=== PATIENT | female | born 1975 | race Caucasian/White ===

== ENCOUNTER → 2016-05-20 | Outpatient (CLI) | payer OTHER ==
[~2016-05-20] MED LIST: ATOR10TA88 PO; CLON0.5T3 PO; EFFSR75 PO; GLC/500 PO; IBUP-103 PO; LISD40CA PO; ONDA4TAB10 SL; OXYC-57 PO; OXYC1TAB3 PO; ROSU20TA PO; SERT50TA PO; TAMS0.4C38 PO; VENL150C PO
[2016-05-20 17:48] LABS: URINE APPEARANCE TURBID (CLEAR); URINE BILIRUBIN NEG (NEG); URINE COLOR YELLOW; URINE NITRITE NEG (NEG); URINE SPECIFIC GRAVITY 1.021 (1.000-1.030); UROBILINOGEN NEG (NEG)
[2016-05-20 18:13] LABS: MANUAL MICROSCOPIC REQUIRED? YES; REVIEW REQ? NO
[2016-05-20 19:07] LABS: URINE BACTERIA NEG (NEG)
== END | disposition home or self-care (01) ==
LOC: C.LABSPEC 17:24
PROVIDERS: ATTEND Family Medicine
DX: R10.2 Pelvic and perineal pain (principal)

== ENCOUNTER 2016-07-01 02:37 | Emergency (ER) | payer OTHER ==
[~2016-07-01] VITALS: Ht 149.9 cm; Wt 60.6 kg
[~2016-07-01 02:37] MED LIST changes: -ATOR10TA88 PO; -LISD40CA PO; -ONDA4TAB10 SL; -OXYC-57 PO; -OXYC1TAB3 PO; -SERT50TA PO; -TAMS0.4C38 PO
[2016-07-01 02:41] VITALS: TEMP 36.8; Ht 149.9 cm; Wt 60.6 kg
[2016-07-01] MEDS ORDERED: SODIUM CHLORIDE 0.9% 1000ML 1,000 ML IV STA ×2 (03:03→06:16)
--- NOTE | 2016-07-01 03:13 | EMERGENCY ROOM VISIT NOTE ---
History Report prepared by Jamir: Eliseo Banks Under the Supervision of: Dr. Stoney Heard M.D. First contact with patient: 02:47 Chief Complaint: PELVIC PAIN Stated Complaint: ABDOMINAL PAIN History of Present Illness The patient is a 40 year old female who presents to the Emergency Room with complaints of severe right sided pelvic pain that the patient has been experiencing intermittently since March of last year, three months prior to arrival. The patient states that her current pain is localized in the right pelvic area and radiates into her right back/flank. She describes it as a cramping/pressure pain. She first experienced the pain in March, and then again significantly at the end of April. She visited with Dr. Frost on May 20 and had a negative urine test. On Friday of this week, 5 days prior to arrival she noticed a brown discoloration in her urine. Her pelvic pain has been worsening since her onset on Friday. She denies any recent traumas, vaginal discharge, or pain with urination. She denies any abdominal surgeries aside from 2 sections. 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 A total of 10 systems reviewed and were otherwise negative. Past Medical & Surgical Medical Problems: (1) Hyperlipidemia Surgical Problems: (1) (2) D&C Family History Diabetes GRANDMOTHER Heart disease Hypertension Lung cancer GRANDFATHER Lung disease Social History Smoking Status: Never Smoker Alcohol Use: occasionally Marital Status: Housing Status: lives with significant other Occupation Status: employed Current/Historical Medications Scheduled Atorvastatin (Lipitor), 10 MG PO DAILY Clonazepam (Klonopin), 0.25 MG PO HS Lisdexamfetamine Dimesylate (Vyvanse), 40 MG PO DAILY Metformin Hcl (Glucophage), 500 MG PO DAILY Sertraline (Zoloft), 75 MG PO DAILY Tamsulosin Hcl (Flomax), 0.4 MG PO DAILY Scheduled PRN Ondasetron Odt (Zofran Odt), 1-2 TAB SL Q6H PRN for Nausea Oxycodone Ir (Roxicodone Ir), 1-3 TAB PO Q4H PRN for Pain Allergies Coded Allergies: Penicillins (Verified Allergy, Intermediate, HIVES, 07/01/16) Erythromycin (Verified Adverse Reaction, Intermediate, SEVERE GI UPSET, 07/01/16) Physical Exam Vital Signs Date Time Temp Pulse Resp B/P Pulse Ox O2 Delivery O2 Flow Rate FiO2 07/01/16 07:13 89 18 129/73 98 Room Air 07/01/16 06:17 99 18 128/74 97 Room Air 07/01/16 04:37 78 18 119/67 98 Room Air 07/01/16 02:41 36.8 105 18 143/80 98 Room Air Physical Exam GENERAL: Patient is uncomfortable appearing and in moderate distress. Constantly moving, unable to get comfortable. HEENT: No acute trauma, normocephalic atraumatic, mucous membranes moist, no nasal congestion, no scleral icterus. NECK: No stridor, no adenopathy, no meningismus, trachea is midline. LUNGS: No dyspnea. Clear to auscultation and equal bilaterally. No wheeze, no rhonchi. HEART: Regular rate and rhythm. No murmurs, rubs, gallops appreciated. ABDOMEN: Soft, nontender, bowel sounds positive, no masses appreciated, no peritonitis. BACK: No midline tenderness, no CVA tenderness EXTREMITIES: Normal motion all extremities, no cyanosis, no edema. NEUROLOGIC: Alert and oriented, no acute motor or sensory deficits, no focal weakness, cranial nerves grossly intact. SKIN: No rash, no jaundice, no diaphoresis. Medical Decision & Procedures ER Provider Diagnostic Interpretation: X ray results and stated below per my interpretation and radiologist interpretation. Other radiology results and stated below per my review and radiologist interpretation: CT ABDOMEN & PELVIS: Visualized lower thorax is unremarkable. The liver, gallbladder, spleen, pancreas, and adrenal glands are unremarkable. Duplicated right collecting system with a 4 mm calculus seen just distal to where the ureters fuser (2-115) at the level of the sacral ala. This causes mild hydro-ureteronephrosis. There are additional nonobstructing calculi within the left kidney. The appendix is within normal limits. Ther bowels unremarkable. The uterus and adnexa are unremarkable. No free fluid. No free air. No acute osseous abnormality. Radiologist: Boo Pena MD Study ready at 0336 and initial results transmitted at 0351 KUB CLINICAL HISTORY: Right ureteral calculus COMPARISON STUDY: CT scan dated 07/01/2016 FINDINGS: There is no pathologic bowel dilatation. The mid right ureteral calculus visualized on the CT scan dated 07/01/2016, is difficult to visualize on conventional radiographic imaging. There is an equivocal density projected over the right hemisacrum which potentially could represent the previously described calculus. IMPRESSION: The patient's mid right ureteral calculus is difficult to visualize on conventional radiographic imaging Electronically signed by: Román Dumont M.D. 07/01/2016 6:45 AM Dictated Date/Time: 07/01/2016 6:42 AM Laboratory Results 07/01/16 02:54 Red Blood Count 4.76, Mean Corpuscular Volume 84.7, Mean Corpuscular Hemoglobin 29.2, Mean Corpuscular Hemoglobin Concent 34.5, Mean Platelet Volume 10.2, Neutrophils (%) (Auto) 82.3, Lymphocytes (%) (Auto) 11.7, Monocytes (%) (Auto) 5.4, Eosinophils (%) (Auto) 0.2, Basophils (%) (Auto) 0.2, Neutrophils # (Auto) 10.99, Lymphocytes # (Auto) 1.56, Monocytes # (Auto) 0.72, Eosinophils # (Auto) 0.02, Basophils # (Auto) 0.02 07/01/16 02:54 Test 07/01/16 02:54 07/01/16 03:03 07/01/16 03:20 White Blood Count 13.33 K/uL (4.8-10.8) Red Blood Count 4.76 M/uL (4.2-5.4) Hemoglobin 13.9 g/dL (12.0-16.0) Hematocrit 40.3 % (37-47) Mean Corpuscular Volume 84.7 fL (80-100) Mean Corpuscular Hemoglobin 29.2 pg (25-34) Mean Corpuscular Hemoglobin Concent 34.5 g/dl (32-36) Platelet Count 314 K/uL (130-400) Mean Platelet Volume 10.2 fL (7.4-10.4) Neutrophils (%) (Auto) 82.3 % Lymphocytes (%) (Auto) 11.7 % Monocytes (%) (Auto) 5.4 % Eosinophils (%) (Auto) 0.2 % Basophils (%) (Auto) 0.2 % Neutrophils # (Auto) 10.99 K/uL (1.4-6.5) Lymphocytes # (Auto) 1.56 K/uL (1.2-3.4) Monocytes # (Auto) 0.72 K/uL (0.11-0.59) Eosinophils # (Auto) 0.02 K/uL (0-0.5) Basophils # (Auto) 0.02 K/uL (0-0.2) RDW Standard Deviation 39.0 fL (36.4-46.3) RDW Coefficient of Variation 12.7 % (11.5-14.5) Immature Granulocyte % (Auto) 0.2 % Immature Granulocyte # (Auto) 0.02 K/uL (0.00-0.02) Anion Gap 9.0 mmol/L (3-11) Est Creatinine Clear Calc Drug Dose 70.7 ml/min Estimated GFR () 101.5 Estimated GFR (Non- 87.6 BUN/Creatinine Ratio 25.0 (10-20) Calcium Level 9.0 mg/dl (8.5-10.1) Total Bilirubin 0.2 mg/dl (0.2-1) Direct Bilirubin < 0.1 mg/dl (0-0.2) Aspartate Amino Transf (AST/SGOT) 8 U/L (15-37) Alanine Aminotransferase (ALT/SGPT) 21 U/L (12-78) Alkaline Phosphatase 86 U/L (45-117) Total Protein 7.9 gm/dl (6.4-8.2) Albumin 4.0 gm/dl (3.4-5.0) Lipase 214 U/L (73-393) Urine Test NEG (NEG) Urine Color RED Urine Appearance SL CLOUDY (CLEAR) Urine pH 5.5 (4.5-7.5) Urine Specific [place] >= 1.030 (1.000-1.030) Urine Protein 2+ (NEG) Urine Glucose (UA) NEG (NEG) Urine Ketones NEG (NEG) Urine Occult Blood 3+ (NEG) Urine Nitrite NEG (NEG) Urine Bilirubin NEG (NEG) Urine Urobilinogen NEG (NEG) Urine Leukocyte Esterase NEG (NEG) Urine RBC >30 /hpf (0-4) Urine WBC 1-5 /hpf (0-5) Urine Epithelial Cells 5-10 /lpf (0-5) Urine Bacteria NEG (NEG) Laboratory results as reviewed by me. Medications Administered Medications (Trade) Dose Ordered Sig/Roxie Route Start Time Stop Time Status Last Admin Dose Admin Sodium Chloride (Nss 1000ml) 1,000 ml @ 999 mls/hr Q1H1M STAT IV 07/01/16 03:03 07/01/16 04:03 DC 07/01/16 03:19 999 MLS/HR Hydromorphone HCl (Dilaudid Inj) 0.5 mg NOW STAT IV 07/01/16 03:51 07/01/16 03:52 DC 07/01/16 03:59 0.5 MG Ondansetron HCl (Zofran Inj) 4 mg NOW STAT IV 07/01/16 03:51 07/01/16 03:52 DC 07/01/16 03:58 4 MG Tamsulosin HCl (Flomax Cap) 0.4 mg NOW ONCE PO 07/01/16 04:00 07/01/16 04:01 DC 07/01/16 04:03 0.4 MG Hydromorphone HCl 0.5 mg 0.5 mg NOW STAT IV 07/01/16 06:16 07/01/16 06:17 DC 07/01/16 06:26 0.5 MG Sodium Chloride (Nss 1000ml) 1,000 ml @ 999 mls/hr Q1H1M STAT IV 07/01/16 06:16 07/01/16 07:16 DC 07/01/16 06:27 999 MLS/HR Ondansetron HCl (ZOFRAN ODT 4MG Home Pack) 1 homepack UD ONCE PO 07/01/16 07:30 07/01/16 07:31 DC 07/01/16 07:36 1 HOMEPACK Oxycodone HCl (Roxicodone Immediate Rel 5MG Home Pack) 1 homepack UD ONCE PO 07/01/16 07:30 07/01/16 07:31 DC 07/01/16 07:36 1 HOMEPACK ED Course 0257: The patient was evaluated in room A2. A complete history and physical exam was performed. 0303: Ordered Sodium Chloride 1000 mL @ 999 mL/hr IV. 0349: I checked on the patient at this time, she is experiencing increased pain. She is now agreeable to IV pain medications. 0351: Ordered Zofran 4 mg IV, Dilaudid 0.5 mg IV 0400: Ordered Tamsulosin HCl 0.4 mg PO. 0428: I spoke with the patient at this time, she is declining more pain medication. 0521: I checked on the patient at this time, she states she is feeling better. 0616: I reevaluated the patient at this time, she states that her pain is returning. 0616: Ordered Sodium Chloride 1000 mL @ 999 mL/hr IV, Dilaudid 0.5 IV 0623: I discussed the case with Dr. Watts at this time. He suggests that I get a KUB, and if pain is controlled I can discharge with a planned follow-up visit in the clinic. He will alert the clinic that she needs an appointment. 0634: I met with the patient at this time she agrees to the KUB X-ray, she is getting pain medications now. Medical Decision Differential: Renal Colic, Pyelonephritis, Hydronephrosis, Appendicitis, Diverticulitis, Retroperitoneal Bleed/Infection, Aortic Pathology, MSK, Neurologic Pathology, amongst other pathologies entertained. Very pleasant 40 yr old female with on and off bilateral flank pain but acute worsening right flank pain with blood in urine. Initially declining pain medications though eventually agreeing to them. CT with right sided partial double ureter and stone just proximal to merge site. Wishes to try outpatient which seems reasonable. No evidence of infection. Reviewed with Dr Watts and will get in to see them as outpatient. Stable and feeling well with periodic small doses narcotics. Aware RTED at any time if worsening or other concerns. Consults Time Called: [phone] Consulting Physician: Dr. Watts - [place] Returned Call: [phone] I discussed the case with Dr. Watts at this time. He suggests that I get a KUB , and if pain is controlled I can discharge with a planned follow-up visit in the clinic. He will alert the clinic that she needs an appointment. Impression Primary Impression: Right ureteral calculus Additional Impression: Hydronephrosis, right Scribe Attestation The scribe's documentation has been prepared under my direction and personally reviewed by me in its entirety. I confirm that the note above accurately reflects all work, treatment, procedures, and medical decision making performed by me. Departure Information Dispostion Home / Self-Care Prescriptions Tamsulosin Hcl (FLOMAX) 0.4 Mg Cap 0.4 MG PO DAILY, #5 CAP Prov: Stoney Heard M.D. 07/01/16 Ondasetron Odt (ZOFRAN ODT) 4 Mg Tab 1-2 TAB SL Q6H Y for Nausea, #20 TAB Prov: Stoney Heard M.D. 07/01/16 Oxycodone Ir (Roxicodone Ir) 5 Mg Tab 1-3 TAB PO Q4H Y for Pain, #30 TAB Prov: Stoney Heard M.D. 07/01/16 Referrals Danna Frost MD (PCP) Ambrosio Watts M.D. Patient Instructions ED Stone Renal W Colic, My [facility] Additional Instructions You have received a narcotic pain medication prescription. These medications may cause drowsiness and should not be used with other sedative medications. Do not drive, drink alcohol, perform dangerous activities, nor make important decisions after taking these medications. long term care phlebotomist use or inappropriate use may lead to addiction. You can not work while on this medication. As a general rule of thumb do not take this medication within 8 hours of a shift. Problem Qualifiers
[2016-07-01 03:16] LABS: BASO % 0.2 %; BASO ABS # 0.02 K/uL (0-0.2); COMPLETE YES; EOS % 0.2 %; HEMATOCRIT 40.3 % (37-47); IG% 0.2 %; LYMPH % 11.7 %; LYMPH ABS # 1.56 K/uL (1.2-3.4); MEAN CELL VOLUME 84.7 fL (80-100); MEAN CORPUSCULAR HEMOGLOBIN 29.2 pg (25-34); MEAN CORPUSCULAR HGB CONC 34.5 g/dl (32-36); MEAN PLATELET VOLUME 10.2 fL (7.4-10.4); MONO % 5.4 %; NEUT % 82.3 %; PLATELET COUNT 314 K/uL (130-400); RED BLOOD COUNT 4.76 M/uL (4.2-5.4); WHITE BLOOD COUNT 13.33 K/uL (4.8-10.8)
[2016-07-01 03:37] LABS: ALT/SGPT 21 U/L (12-78); AST/SGOT 8 U/L (15-37); BLOOD UREA NITROGEN 21 mg/dl (7-18); CARBON DIOXIDE 30 mmol/L (21-32); CHLORIDE 103 mmol/L (98-107); CREATININE 0.83 mg/dl (0.60-1.20); GLUCOSE 129 mg/dl (70-99); POTASSIUM 3.7 mmol/L (3.5-5.1); SODIUM 142 mmol/L (136-145)
[2016-07-01 03:40] LABS: ALKALINE PHOSPHATASE 86 U/L (45-117)
[2016-07-01 03:41] LABS: MANUAL MICROSCOPIC REQUIRED? YES; URINE APPEARANCE SL CLOUDY (CLEAR); URINE BILIRUBIN NEG (NEG); URINE COLOR RED; URINE NITRITE NEG (NEG); URINE PH 5.5 (4.5-7.5); URINE SPECIFIC GRAVITY >= 1.030 (1.000-1.030); UROBILINOGEN NEG (NEG)
[2016-07-01 03:42] LABS: REVIEW REQ? NO
[2016-07-01 03:45] LABS: URINE BACTERIA NEG (NEG); URINE RBC >30 /hpf (0-4); ZZUR CULT IF INDIC CLEAN CATCH NO
[2016-07-01] MEDS ORDERED: HYDROmorphone INJ 0.5 MG/0.5 ML SYR IV STA ×2 (03:51→06:16)
[2016-07-01] MEDS ORDERED: ONDANSETRON INJ 2 MG/ML 2 ML VIAL IV STA (03:51)
[2016-07-01] MEDS ORDERED: TAMSULOSIN HCL 0.4 MG CAP PO ONE (04:00)
[2016-07-01] MEDS ORDERED: LISD40CA PO (04:27)
[2016-07-01] MEDS ORDERED: ATOR10TA88 PO (04:27)
[2016-07-01] MEDS ORDERED: CLON0.5T3 PO (04:27)
[2016-07-01] MEDS ORDERED: SERT50TA PO (04:27)
--- NOTE | 2016-07-01 06:46 | DIAGNOSTIC IMAGING REPORT ---
KUB CLINICAL HISTORY: Right ureteral calculus COMPARISON STUDY: CT scan dated 07/01/2016 FINDINGS: There is no pathologic bowel dilatation. The mid right ureteral calculus visualized on the CT scan dated 07/01/2016, is difficult to visualize on conventional radiographic imaging. There is an equivocal density projected over the right hemisacrum which potentially could represent the previously described calculus. IMPRESSION: The patient's mid right ureteral calculus is difficult to visualize on conventional radiographic imaging Electronically signed by: Román Dumont M.D. 07/01/2016 6:45 AM Dictated Date/Time: 07/01/2016 6:42 AM
[2016-07-01] MEDS ORDERED: OXYC1TAB3 PO (07:23)
[2016-07-01] MEDS ORDERED: ONDA4TAB10 SL (07:23)
[2016-07-01] MEDS ORDERED: TAMS0.4C38 PO (07:23)
[2016-07-01] MEDS ORDERED: ONDANSETRON HOME PACK 4MG OD TAB PO ONE (07:30)
[2016-07-01] MEDS ORDERED: HYDROmorphone INJ 0.5 MG/0.5 ML SYR IV PRN (07:30)
[2016-07-01] MEDS ORDERED: OXYCODONE IR HOME PACK PO ONE (07:30)
--- NOTE | 2016-07-01 07:33 | DIAGNOSTIC IMAGING REPORT ---
CT SCAN OF THE ABDOMEN AND PELVIS WITHOUT CONTRAST CLINICAL HISTORY: right flank pain COMPARISON STUDY: No previous studies for comparison. TECHNIQUE: CT scan of the abdomen and pelvis was performed from the lung bases to the proximal femurs. Images are reviewed in the axial, sagittal, and coronal planes. IV contrast was not administered for this examination. CT DOSE: 450.78 mGy.cm FINDINGS: Lower chest: The heart is normal in size and configuration, without pericardial effusion. The lung bases and pleural spaces are clear. Liver: The unenhanced liver is normal in size, contour, and attenuation. There is no intrahepatic biliary ductal dilatation. Gallbladder: Unremarkable. Spleen: Normal in size and attenuation. Pancreas: Unremarkable. Adrenal glands: Unremarkable. Kidneys: There is right-sided hydronephrosis and hydroureter. There is a duplex collecting system. There is a 6 mm mid right ureteral calculus. This is distal to where the 2 right ureters joint and therefore results in both upper pole and lower pole hydronephrosis. There is a nonobstructing punctate left renal calculus. Bowel: There are no transition zones indicate bowel obstruction. There is no acute diverticulitis. There are no findings to indicate acute appendicitis. Peritoneum: There is no intraperitoneal free air or abdominal ascites. Vasculature: The abdominal aorta is normal in course and caliber. Adenopathy: None. Pelvic viscera: The bladder, and pelvic viscera are unremarkable. Skeletal structures: No destructive osseous lesions are seen. IMPRESSION: 1. Duplex right-sided collecting system. The 2 ureters join at approximately the L4-5 level 2. 6 mm obstructing mid right ureteral calculus at the S2 level 3. Nonobstructing punctate left renal calculus. Electronically signed by: Román Dumont M.D. 07/01/2016 7:32 AM Dictated Date/Time: 07/01/2016 7:28 AM
[2016-07-01 08:44] VITALS: BP 95/62; PULSE 101; O2SAT 97
[2016-07-04] MEDS ORDERED: OXYC1TAB3 PO (14:35)
[2016-07-04] MEDS ORDERED: TAMS0.4C38 PO (14:35)
[2016-07-05] MEDS ORDERED: OXYC-57 PO (11:22)
== END 2016-07-01 08:47 | disposition home or self-care (01) ==
LOC: C.EDB 02:38 → C.EDA 08:47
DX: N13.2 Hydronephrosis with renal and ureteral calculous obstruction (principal); E78.5 Hyperlipidemia, unspecified; Z79.899 Other long term (current) drug therapy

== ENCOUNTER → 2016-07-05 | Day surgery (SDC) | payer OTHER ==
--- NOTE | 2016-07-03 18:10 | DIAGNOSTIC IMAGING REPORT ---
TWO VIEW CHEST CLINICAL HISTORY: Preoperative examination. FINDINGS: PA and lateral chest radiographs are compared to study dated 08/15/2005. The cardiomediastinal silhouette is unremarkable. The lungs and pleural spaces are clear. There is no pneumothorax. The bony thorax appears intact. IMPRESSION: No active disease in the chest. Electronically signed by: Phillip Emanuel M.D. 07/03/2016 6:09 PM Dictated Date/Time: 07/03/2016 6:08 PM
[2016-07-04 14:37] VITALS: Ht 149.9 cm; Wt 60.5 kg
[~2016-07-05] VITALS: Ht 149.9 cm; Wt 60.5 kg
[~2016-07-05] MED LIST changes: +ATOR10TA88 PO; +ATROPINE SULFATE 0.1 MG/ML 5ML SYR IV PRN; +CIPROFLOXACIN 400MG / D5W IV SCH; +DEXAMETHASONE SOD INJ 4 MG/ML VIAL ONE; -EFFSR75 PO; +EpHEDrine SULFATE INJ 50 MG/ML AMP IV PRN; +FENTANYL CITRATE INJ 50 MCG/1 ML 2 ML VIAL ONE; -IBUP-103 PO; +LACTATED RINGER'S 1000ML 1,000 ML IV SCH; +LIDOCAINE HCL 2% 2 ML VIAL (20MG/ML) ONE; +LISD40CA PO; +MIDAZOLAM HCL 1 MG/ML 2ML VIAL ONE; +ONDANSETRON INJ 2 MG/ML 2 ML VIAL ONE; +OXYC-57 PO; +OXYC1TAB3 PO; +OXYCODONE/ACETAMINOPHEN 5-325 TAB PO PRN; +PROPOFOL IV EMULSION 10 MG/ML 20 ML VIAL IV ONE; -ROSU20TA PO; +SERT50TA PO; +TAMS0.4C38 PO; -VENL150C PO
--- NOTE | 2016-07-05 09:22 | DIAGNOSTIC IMAGING REPORT ---
KUB CLINICAL HISTORY: N20.0 [id number] nephrocalcinosis COMPARISON STUDY: 07/01/2016 FINDINGS: Right ureteral calculus previously described cannot be confirmed on plain film evaluation. A pattern is nonobstructive. IMPRESSION: Plain film evaluation fails to confirm a right ureteral calculus. This may be secondary to overlap artifact. Electronically signed by: Abdoul Andrews M.D. 07/05/2016 9:21 AM Dictated Date/Time: 07/05/2016 9:20 AM
--- NOTE | 2016-07-05 10:36 | History & Physical Bridge Note ---
H&P Re-Evaluation Bridge Note: I have examined the patient, reviewed the History & Physical and in the interval since the performance of the History & Physical I have noted the following changes of clinical significance: No changes noted
--- NOTE | 2016-07-05 11:21 | [facility] Post Operative Brief Note ---
Immediate Operative Summary Operative Date Jul 05, 2016. 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
--- NOTE | 2016-07-05 11:23 | Discharge Instructions-SurgCtr ---
Discharge Instructions Date of Service Jul 05, 2016. Visit Reason for Visit: Stones Discharge Discharge Diagnosis / Problem: STONE Discharge Goals Goal(s): Therapeutic intervention Activity Recommendations Activity Limitations: resume your previous activity (TAKE IT EASY TODAY) MEDICATIONS: Resume previous medications unless instructed otherwise by your surgeon. Resume pre-ESWL medication except for aspirin, coumadin or other blood thinners. __ Toradol 10 mg every 6 hours for initial pain. __ Lortab 5 mg 1-2 every 4 hours for pain. _X_ Percocet 5 mg 1-2 every 4 hours for pain. __ Macrodantin 50 mg x 3 a day. __ Flomax 1 tab daily one half (1/2) hour after supper. SPECIAL CARE INSTRUCTIONS: 1. Get KUB (x-ray) _X_ day before or day of office visit and bring x-ray to office __ get x-ray 2 days before and tell office you are getting x-rays when you call for the appointment. 2. Strain ALL urine. 3. Please call if you have a fever, chills, severe pain, or constant dribbling of urine. 4. Office phone number . FOLLOW UP VISIT: Please call the office to schedule a follow-up appointment at . Anesthesia . Post Anesthesia Instructions: If you have had General Anesthesia or IV Sedation: * Do not drive today. * Resume driving when surgeon permits. * Do not make important decisions or sign legal documents today. * Call surgeon for: 1. Temperature elevations greater than 101 degrees F. 2. Uncontrollable pain. 3. Excessive bleeding. 4. Persistent nausea and vomiting. 5. Medication intolerance (nausea, vomiting or rash). * For nausea and vomiting use only clear liquids such as: tea, soda, bouillon until nausea subsides, then gradually increase diet as tolerated. * If you have any concerns or questions, call your surgeon's office. If physician is unavailable and it is an emergency, call 911 or go to the nearest emergency room. . Diet Recommendations Home Diet: resume previous diet Procedures Procedures Performed: RIGHT ESWL Pending Studies Studies pending at discharge: no Medical Emergencies . Who to Call and When: Medical Emergencies: If at any time you feel your situation is an emergency, please call 911 immediately. . Non-Emergent Contact Non-Emergency issues call your: Urologist . . "Provider Documentation" section prepared by Jorge Liang. [facility] Drug Monitoring Program Search Results: patient reviewed within database
[2016-07-05] MEDS: FENTANYL CITRATE INJ 50 MCG/1 ML 2 ML VIAL IV PRN ×2 (12:22→12:35)
[2016-07-05 12:53] VITALS: TEMP 37
--- NOTE | 2016-07-05 13:38 | Anesthesia Progress Nt - [facility] ---
Anesthesia Post Op Note Date & Time Jul 05, 2016 at 13:38 Vital Signs Pain Intensity: 4.0 Vital Signs Past 12 Hours Date Time Temp Pulse Resp B/P Pulse Ox O2 Delivery O2 Flow Rate FiO2 07/05/16 13:06 81 98 07/05/16 13:06 81 07/05/16 13:05 124/86 07/05/16 13:01 74 14 07/05/16 13:01 75 14 96 07/05/16 13:00 119/84 07/05/16 12:58 72 10 97 07/05/16 12:58 73 10 07/05/16 12:55 129/81 07/05/16 12:53 75 13 100 07/05/16 12:53 74 13 07/05/16 12:53 37.0 72 12 124/82 97 Room Air 07/05/16 12:52 71 13 100 07/05/16 12:52 72 13 07/05/16 12:50 124/82 07/05/16 12:47 71 14 07/05/16 12:47 69 14 100 07/05/16 12:46 72 13 100 07/05/16 12:46 70 13 07/05/16 12:45 124/83 07/05/16 12:41 69 16 07/05/16 12:41 69 16 100 07/05/16 12:40 121/83 07/05/16 12:36 73 14 96 07/05/16 12:36 74 14 07/05/16 12:35 129/78 07/05/16 12:32 85 11 07/05/16 12:32 82 11 100 07/05/16 12:30 116/80 07/05/16 12:27 68 12 07/05/16 12:27 69 12 100 07/05/16 12:25 124/83 07/05/16 12:22 76 14 07/05/16 12:22 75 14 100 07/05/16 12:20 130/85 07/05/16 12:17 80 18 07/05/16 12:17 80 18 100 07/05/16 12:15 122/88 07/05/16 12:12 79 18 100 07/05/16 12:12 80 18 07/05/16 12:11 82 15 100 07/05/16 12:11 80 15 07/05/16 12:10 135/87 3/10/17 12:06 80 16 07/05/16 12:06 79 16 100 07/05/16 12:05 126/86 07/05/16 12:01 36.6 85 16 133/65 100 Diffusion Mask 6 07/05/16 12:01 86 13 133/85 100 07/05/16 12:01 86 13 07/05/16 09:44 37.2 110 18 152/92 97 Room Air Notes Mental Status: alert / awake / arousable, participated in evaluation Pt Amnestic to Procedure: Yes Nausea / Vomiting: adequately controlled Pain: adequately controlled Airway Patency, RR, SpO2: stable & adequate BP & HR: stable & adequate Hydration State: stable & adequate Anesthetic Complications: no major complications apparent
[2016-07-05 13:45] VITALS: BP 134/81; PULSE 94; O2SAT 97
--- NOTE | 2016-07-11 09:33 | OPERATIVE REPORT ---
DATE OF OPERATION: 07/05/2016 PREOPERATIVE DIAGNOSIS: Right ureteral calculus. POSTOPERATIVE DIAGNOSIS: Same. PROCEDURE: Extracorporeal shockwave lithotripsy. FINDINGS: KUB showed stone right kidney. SURGEON: Dr. Liang. ANESTHESIA: General. DRAINS: None. COMPLICATIONS: None. SPECIMENS: None. INDICATIONS: The patient is a 40-year-old white female with a right ureteral stone being brought in for ESWL. DETAILS OF PROCEDURE: The patient was brought to the litho suite. He was correctly identified and the stone was visualized on his most recent x-rays. After the correct time out was performed the patient was positioned over the therapy head. An adequate level of anesthesia was administered. The extracorporeal shockwave lithotripsy treatment was then commenced. Please see the [facility] sheet for complete treatment summary. After completion of the procedure the patient was taken to the recovery room in stable condition. I attest to the content of the Intraoperative Record and any orders documented therein. Any exceptio ns are noted below.
== END | disposition home or self-care (01) ==
LOC: X.SURG 09:10
PROVIDERS: ATTEND Urology
DX: N20.1 Calculus of ureter (principal); F41.9 Anxiety disorder, unspecified; F32.9 Major depressive disorder, single episode, unspecified; E78.00 Pure hypercholesterolemia, unspecified; E66.9 Obesity, unspecified; Z98.51 Tubal ligation status; Z98.890 Other specified postprocedural states; Z88.0 Allergy status to penicillin; Z88.1 Allergy status to other antibiotic agents

== ENCOUNTER → 2016-07-10 | Outpatient (CLI) | payer OTHER ==
[~2016-07-10] MED LIST changes: -ATROPINE SULFATE 0.1 MG/ML 5ML SYR IV PRN; -CIPROFLOXACIN 400MG / D5W IV SCH; -DEXAMETHASONE SOD INJ 4 MG/ML VIAL ONE; -EpHEDrine SULFATE INJ 50 MG/ML AMP IV PRN; -FENTANYL CITRATE INJ 50 MCG/1 ML 2 ML VIAL ONE; -LACTATED RINGER'S 1000ML 1,000 ML IV SCH; -LIDOCAINE HCL 2% 2 ML VIAL (20MG/ML) ONE; -MIDAZOLAM HCL 1 MG/ML 2ML VIAL ONE; -ONDANSETRON INJ 2 MG/ML 2 ML VIAL ONE; -OXYCODONE/ACETAMINOPHEN 5-325 TAB PO PRN; -PROPOFOL IV EMULSION 10 MG/ML 20 ML VIAL IV ONE
== END | disposition home or self-care (01) ==
LOC: C.LABSPEC 17:10
PROVIDERS: ATTEND Urology
DX: N20.0 Calculus of kidney (principal)

== ENCOUNTER → 2016-07-10 | Outpatient (CLI) | payer OTHER ==
--- NOTE | 2016-07-10 10:10 | DIAGNOSTIC IMAGING REPORT ---
KUB CLINICAL HISTORY: N20.0 [id number] nephrocalcinosis COMPARISON STUDY: 07/05/2016 FINDINGS: The soft tissues, psoas shadows, renal outlines and intestinal gas pattern appear normal. There is no evidence for bowel obstruction. No abnormal abdominal calcifications are seen. IMPRESSION: Normal study. No change from the prior exam Electronically signed by: Abdoul Andrews M.D. 07/10/2016 10:08 AM Dictated Date/Time: 07/10/2016 10:07 AM
== END | disposition home or self-care (01) ==
LOC: C.RAD 09:27
PROVIDERS: ATTEND Urology
DX: N20.0 Calculus of kidney (principal)